=== PATIENT | female | born 1945 ===

== ENCOUNTER 2020-06-07 14:30 | Inpatient (IN) | payer OTHER ==
[~2020-06-07] VITALS: Ht 152.4 cm; Wt 53.5 kg
[~2020-06-07 14:30] MED LIST: AVAPRO300 MG PO; CARVEDILOL12.5 MG; DILANTIN100 MG PO; LEVOTHYROXINE25 MCG PO; METFORMIN HCL500 M3 PO; RESTORIL30 MG PO; ZEGERID 20 MG1 EACH PO
[2020-06-17] MEDS ORDERED: PRILOSEC OTC20 MG PO (10:29)
[2020-06-17] MEDS ORDERED: PERCOCET 5-3251 EACH PO (10:29)
== END 2020-06-17 11:23 | disposition home or self-care (01) | DRG 333 ==
LOC: O/R 06-14 05:45 → SURG 06-14 05:45 → O/R 06-14 10:15 → SURG 06-14 10:56 → O/R 06-14 14:30 → SURG 06-17 11:23
PROVIDERS: ADMIT Surgery; ATTEND Surgery
PROC: 07BC4ZZ Excision of Pelvis Lymphatic, Percutaneous Endoscopic Approach (ICD-10-PCS; 2020-06-14)
PROC: 0DBP4ZZ Excision of Rectum, Percutaneous Endoscopic Approach (ICD-10-PCS; principal; 2020-06-14 10:15)
DX: C19 Malignant neoplasm of rectosigmoid junction (principal); K62.5 Hemorrhage of anus and rectum; R59.0 Localized enlarged lymph nodes; D12.6 Benign neoplasm of colon, unspecified; I10 Essential (primary) hypertension; E78.5 Hyperlipidemia, unspecified

== ENCOUNTER 2020-06-13 05:35 | Day surgery (SDC) | payer OTHER | END 2020-06-13 09:40 | disposition home or self-care (01) | LOC: AMB-ENDOS 05:35 | PROVIDERS: ATTEND Surgery | DX: C18.7 Malignant neoplasm of sigmoid colon (principal) ==

== ENCOUNTER 2020-08-21 13:10 | Emergency (ER) | payer OTHER ==
[~2020-08-21] VITALS: Ht 152.4 cm; Wt 49.9 kg
[~2020-08-21 13:10] MED LIST changes: +PERCOCET 5-3251 EACH PO; +PRILOSEC OTC20 MG PO
[2020-08-21] MEDS ORDERED: NEURONTIN300 MG PO (13:21)
[2020-08-21] MEDS ORDERED: GLIPIZIDE XL5 MG PO (13:23)
== END 2020-08-21 17:01 | disposition home or self-care (01) ==
LOC: ER 13:10
DX: L01.09 Other impetigo (principal); L08.89 Other specified local infections of the skin and subcutaneous tissue; K13.79 Other lesions of oral mucosa; C18.7 Malignant neoplasm of sigmoid colon; Z90.49 Acquired absence of other specified parts of digestive tract